=== PATIENT | male | born 1985 | race Caucasian/White ===

== ENCOUNTER 2022-05-06 06:08 | Emergency (ER) | payer SELFPAY ==
[2022-05-06 06:09] VITALS: BP 124/86; PULSE 120; RESP 17; TEMP 36.9; O2SAT 99; BMI 24.4
--- NOTE | 2022-05-06 06:24 | [facility].EDGENADL ---
ED Disposition Clinical Impression: Laceration of forearm, right Qualifiers: Encounter type: initial encounter Qualified Code(s): S51.811A - Laceration without foreign body of right forearm, initial encounter Disposition: Home, Self-Care Condition on Discharge: Good Instructions: DI for Laceration Repair Additional Instructions: You have been evaluated for laceration. Please keep the wound clean and dry for 24 hours. Okay to wash normally after that. Take Keflex 4 times daily as prescribed. Tylenol or Motrin for pain. Follow-up with a primary care doctor in 7 to 10 days for suture removal. Return to the emergency department at once for any new or worsening symptoms, pain, redness, fever, wound drainage, other concerns. Prescriptions: cephALEXin [cephALEXin 500mg capsule*] 500 mg PO Q6H #20 cap Transmission Status: Pending to [facility] #[id number] Referrals: Provider,Referral, [Primary Care Provider] - Time of Disposition: 06:40 - Critical Care Critical Care Time: No Attestation: On , the high probability of a clinically significant, sudden or life threatening deterioration of the following system(s) required my full and direct attention, intervention and personal management. The time I documented below is in addition to time spent performing reported procedures but includes the following listed in this critical care notation. Medical Decision Making - Medical Records Medical records reviewed: Yes: I reviewed the patient's medical records. - Kieran Inquiry Pt receiving controlled substance: No Vital Signs: 05/06/22 06:09 05/06/22 06:50 Temperature 98.4 F 98.3 F Temperature Source Oral Oral Pulse Rate 99 H Pulse Rate [Right] 120 H Respiratory Rate 17 20 Blood Pressure 124/74 Blood Pressure [Left Arm] 124/86 Blood Pressure Mean [Left Arm] 98 Blood Pressure Source [Left Arm] Automatic Cuff 02 Sat by Pulse Oximetry 99 Oxygen Delivery Method Room Air Room Air Orders (Tests/Meds): ED MEDICATIONS Discontinued Medications Generic Name Dose Route Start Last Admin Trade Name Freq PRN Reason Stop Dose Admin Lidocaine HCl 5 ml 05/06/22 06:18 05/06/22 06:31 Lidocaine 1% 10ml Mdv SQ 05/06/22 06:19 5 ml ONCE ONE Administration Tetanus/Reduced Diphtheria/Acell Pertussis 0.5 ml 05/06/22 06:18 Tet/Diphth/Pert-Adult 0.5ml Syringe IM 05/06/22 06:19 .ONCE ONE Medical Decision Narrative: In summary this is a 36-year-old [id number]-nismwduo male presenting to the emergency department with a laceration to the right forearm. Patient clinically stable on arrival. Tachycardic. Tetanus updated. Laceration anesthetized with lidocaine. Copiously irrigated. Laceration repaired with 5.0 suture. Procedure well-tolerated. Counseled on wound care management. Will prescribe Keflex, given that it was a dirty wound. Recommended PCP follow-up. Will need sutures removed in 7 to 10 days. Given return precautions. Stable for discharge. General Adult HPI - General Stated complaint: W/C 05/06/22 @ 0550 Right arm laceration Time Seen by Provider: 05/06/22 06:24 Mode of Arrival: Family Vehicle Limitations: No Limitations Description of Symptoms (Recalled from ER Triage Doc. by RN): Pt c/o laceration to R forearm. States this morning at work he roll picker a bucket with metal fencing and it cut his arm. Rust was noted on the fencing. His co-worker and he washed the arms and applied clean dressing to it. Pt reports I think I had a reaction to the tetanus shot when I was teenager . He does not remember what type of reaction from the tetanus vaccine. - History of Present Illness HPI narrative: 36-year-old male presenting to the emergency department with a laceration to the right forearm. Incident happened just prior to arrival. He was at work. Went to roll picker a bucket and cut the volar aspect of his right forearm. He sustained rather large laceration. Bleeding controlled with
--- NOTE | 2022-05-06 06:39 | PC.NURSE ---
laceration cleaned with sterile water and hibiclens
--- NOTE | 2022-05-06 06:43 | PC.NURSE ---
lab notified of need for drug screen per employers request
[2022-05-06 06:50] VITALS: BP 124/74; PULSE 99; RESP 20; TEMP 36.8; O2SAT 99
--- NOTE | 2022-05-06 07:26 | PC.NURSE ---
Pt refusing TDAP. States I think I had a reaction as a teen. Pt states he will call his mother when he gets his cell phone and will think about coming back for the shot . Educated pt on suture removal in 7-10 days, wound care, dressing changes, and abx use. grants officer and pt directed to the outpatient lab for UDS collection per workers comp protocol of facility.
== END 2022-05-06 07:26 | disposition home or self-care (01) ==
PROVIDERS: Emergency Provider Emergency Medicine
DX: S51.811A Laceration without foreign body of right forearm, initial encounter (principal); Z88.7 Allergy status to serum and vaccine; W26.8XXA Contact with other sharp object(s), not elsewhere classified, initial encounter
CPT/HCPCS: 12004; 80305; 99283

== ENCOUNTER 2022-05-16 13:26 | Emergency (ER) | payer SELFPAY ==
[2022-05-16 13:49] VITALS: BP 145/79; PULSE 92; RESP 16; TEMP 37.2; O2SAT 99; BMI 25.0
[2022-05-16 13:50] VITALS: BP 145/79; PULSE 92; RESP 16; TEMP 37.2
== END 2022-05-16 13:51 | disposition home or self-care (01) ==
LOC: UTC 13:29
PROVIDERS: Emergency Provider Nurse Practitioner Family
DX: S51.811D Laceration without foreign body of right forearm, subsequent encounter (principal); Z48.02 Encounter for removal of sutures; E66.3 Overweight; Z68.25 Body mass index [BMI] 25.0-25.9, adult